=== PATIENT | female | born 1975 | race Caucasian/White ===

== ENCOUNTER 2016-06-26 13:01 | Emergency (ER) | payer OTHER ==
[~2016-06-26] VITALS: Ht 160 cm; Wt 68.0 kg
[~2016-06-26 13:01] MED LIST: BEN25 PO; CARB15SO5 MM; CETI10CA PO; DOXY100T20 PO; METR500T PO; NITR-58 PO; OMEP20CA9 PO; PHEN-538 PO
[2016-06-26 13:04] VITALS: Ht 160 cm; Wt 68.0 kg
[2016-06-26 14:58] LABS: URINE BLOOD (Dip) POC Negative (NEGATIVE)
[2016-06-26] MEDS ORDERED: CETI10CA PO (15:20)
[2016-06-26 15:27] VITALS: BP 116/68; PULSE 89; RESP 18; TEMP 98.1
--- NOTE | 2016-06-26 15:36 | ERD ---
ER Documentation Chief Complaint Date/Time DATE: 06/26/16 TIME: 15:31 Chief Complaint used root touch up chemical states feels abdomen and throat burning HPI Patient is a 41-year-old female who presents to the ED with itchiness to her scalp, shortness of breath after using a "root touch up." She states that she has multiple allergies to different chemicals and states that after using this product she developed her symptoms. She denies difficulty swallowing, breathing , talking. She denies lip or tongue swelling. She denies blurry vision, dizziness, headache. She denies abdominal pain, nausea, vomiting or diarrhea. Patient is very concerned about her symptoms and is worried that she "was poisoned." No other complaints. She has been drinking lots of fluid and states that she has been urinating a lot since 3 hours ago. ROS All systems reviewed and are negative except as per history of present illness. Medications Home Meds Active Scripts Cetirizine Hcl* (Zyrtec*) 10 Mg Capsule, 10 MG PO DAILY, #30 TAB.CHEW Prov:PAUL NAVARRO PA-C 06/26/16 Omeprazole* (Prilosec*) 20 Mg Capsule.dr, 20 MG PO BID, #30 CAP Prov:JAIRO RAMIRES PA-C 05/09/15 Carbamide Peroxide (Gly-Oxide) 60 Ml Solution, 60 ML MM BID, #1 Prov:JAIRO RAMIRES PA-C 05/09/15 Cetirizine Hcl* (Zyrtec*) 10 Mg Capsule, 10 MG PO DAILY, #14 TAB.CHEW Prov:EYAD CARTER MD 12/08/14 Phenazopyridine Hcl* (Pyridium*) 200 Mg Tab, 200 MG PO TID Y for DYSURIA, #6 TAB Prov:HEAVEN BEST NP 12/08/14 Nitrofurantoin Monohyd Macrocr* (Macrobid*) 100 Mg Capsr, 100 MG PO BID for 7 Days, CAP Prov:HEAVEN BEST NP 12/08/14 Diphenhydramine Hcl* (Benadryl*) 25 Mg Cap, 25 MG PO Q6 Y for IT, #30 CAP Prov:HEAVEN BEST NP 12/08/14 Doxycycline Hyclate* (Doxycycline Hyclate*) 100 Mg Tablet.dr, 100 MG PO BID for 14 Days, TAB Prov:ELISSA BOOTH MD 12/05/14 Metronidazole* (Flagyl*) 500 Mg Tablet, 500 MG PO BID WITH MEALS for 14 Days, TAB Prov:ELISSA BOOTH MD 12/05/14 Allergies Allergies: Coded Allergies: Penicillins (Verified Allergy, Intermediate, 06/26/16) PMhx/Soc Medical and Surgical Hx: pt denies Surgical Hx History of Surgery: No Anesthesia Reaction: No Hx Neurological Disorder: No Hx Respiratory Disorders: No Hx Cardiac Disorders: No Hx Psychiatric Problems: Yes (anxiety) Hx Miscellaneous Medical Probl: No Hx Alcohol Use: No Hx Substance Use: No Hx Tobacco Use: No Smoking Status: Never smoker FmHx Family History: No coronary disease, No diabetes, No other Physical Exam Vitals Vital Signs Date Time Temp Pulse Resp B/P Pulse Ox O2 Delivery O2 Flow Rate FiO2 06/26/16 15:27 98.1 89 18 116/68 100 Room Air 06/26/16 13:04 98.4 115 18 109/67 100 Physical Exam GENERAL: Well-developed, well-nourished female. Appears in no acute distress. HEAD: Normocephalic, atraumatic. EYES: Pupils are equally reactive bilaterally. EOMs grossly intact. No conjunctival erythema. ENT: Moist mucous membranes. No uvula deviation. No kissing tonsils. No exudates. No tongue or lip swelling. NECK: Supple. No lymphadenopathy or thyromegaly. No meningismus. negative kernig. negative brudinski. LUNG: Clear to auscultation bilaterally. No rhonchi, wheezing, rales or coarse breath sounds. HEART: Regular rate and rhythm. No murmurs, rubs or gallops. ABDOMEN: No scars, ecchymosis or rashes noted. Soft, nontender, and nondistended. Positive bowel sounds in all four quadrants. No rebound tenderness , no guarding. (-) McBurneys point tenderness. No CVA tenderness. BACK: No midline tenderness. Extremities: Equal pulses bilaterally. No peripheral clubbing, cyanosis or edema. No unilateral leg swelling. NEUROLOGIC: Alert and oriented. Moving all four extremities. 5/5 strength in all extremities. Normal speech. Steady gait. Cranial nerves II through XII intact. SKIN: Normal color. Warm and dry. No rashes or lesions. Capillary refill < 2 seconds Results 24 hrs Laboratory Tests Test 06/26/16 14:57 Bedside Urine pH (LAB) 6.0 Bedside Urine Protein (LAB) Negative Bedside Urine Glucose (UA) Negative Bedside Urine Ketones (LAB) Negative Bedside Urine Blood Negative Bedside Urine Nitrite (LAB) Negative Bedside Urine Leukocyte Esterase (L Negative Procedures/MDM ER COURSE: I kept the patient and/or family informed of laboratory and diagnostic imaging results throughout the emergency room course. LABORATORY STUDIES Urine dip shows no nitrites, hematuria or leukocytes. MEDICAL DECISION MAKING: This is a 41-year-old female who presents with nervousness and scalp discomfort after using hair dye. Vital signs were reviewed. Patient is afebrile. Patient is not hypoxic. Patient is not toxic or ill-appearing. Her initial tachycardia is likely related to stress reaction and being nervous. Patient likely has allergic reaction to chemical in the hair dye. I have low suspicion for angioedema, sepsis, anaphylactic. Patient does not have tongue or lip swelling and is speaking in full sentences without shortness of breath. Low suspicion for necrotizing fasciitis, SJS, toxic epidermal necrolysis, Kawasaki, erythema multiforme, gangrene, scarlet fever, meningococcemia, sepsis, anaphylaxis, sepsis, deep space infection, or foreign body. Low suspicion for ACS, PE, AAA, dissection, DVT DISCHARGE: At this time, patient is stable for discharge and outpatient management with no new complaints during the ER course. Patient was sent home with [facility]. Patient will be discharged home with instructions to recheck for new or worsening symptoms such as fever, nausea, weakness, LOC and to follow up with primary care in the next 1-2 days. Patient was advised to return to the ER for any new or worsening symptoms. Plan was discussed and patient and/or family understands and agrees. Home instructions were given. Departure Diagnosis: Primary Impression: Allergic reaction Encounter type: initial encounter Qualified Code: T78.40XA - Allergic reaction, initial encounter Condition: Stable Patient Instructions: Allergic Reaction, Drug Additional Instructions: Call your primary care doctor TOMORROW for an appointment during the next 1-2 days.See the doctor sooner or return here if your condition worsens before your appointment time. PAUL NAVARRO PA-C Jun 26, 2016 15:36
== END 2016-06-26 15:28 | disposition home or self-care (01) ==
LOC: FTE 13:01
DX: T78.49XA Other allergy, initial encounter (principal)
CPT/HCPCS: 81003; Z7502; 99283

== ENCOUNTER 2017-08-02 10:32 | Emergency (ER) | END 2017-08-02 10:55 | disposition home or self-care (01) ==

== ENCOUNTER 2017-09-15 03:58 | Emergency (ER) | END 2017-09-15 06:40 | disposition home or self-care (01) ==

== ENCOUNTER 2018-02-14 22:41 | Emergency (ER) | END 2018-02-14 23:21 | disposition home or self-care (01) ==

== ENCOUNTER 2018-05-28 06:15 | Emergency (ER) | payer OTHER ==
[~2018-05-28] VITALS: Ht 157.5 cm; Wt 68.0 kg
[~2018-05-28 06:15] MED LIST changes: +FAMO-96 PO; +FLUT9.9S NASAL; +LORA10CA PO; +LORA10CA9 PO; +MED4DP PO; +ONDA4TAB8 PO; +RANI150T35 PO
[2018-05-28 06:20] VITALS: Ht 157.5 cm; Wt 68.0 kg
[2018-05-28] MEDS ORDERED: LORA-441 PO (07:14)
--- NOTE | 2018-05-28 07:14 | ERD ---
ER Documentation Chief Complaint Chief Complaint anxiety HPI 42-year-old female with history of anxiety, presents to the emergency department complaining of sudden onset of dizziness, chest pain, palpitations associated with sore throat. The patient states that she has been under a lot of stress and persistent worrying about health and family. She has had similar episodes in the past but less intense. She is not taking any medication at this time. History provided by patient. ROS All systems reviewed and are negative except as per history of present illness. Medications Home Meds Active Scripts Lorazepam* (Ativan*) 0.5 Mg Tablet, 0.5 MG PO Q8H PRN for ANXIETY, #10 TAB Prov:JENNA CHE MD 05/28/18 Loratadine (Loratadine) 10 Mg Capsule, 10 MG PO DAILY, #30 CAP Prov:PASILABANTAVO 02/14/18 Ondansetron Hcl* (Zofran*) 4 Mg Tablet, 4 MG PO Q8H PRN for NAUSEA AND/OR VOMITING, #30 TAB Prov:TAVO DIAS 02/14/18 Famotidine* (Pepcid*) 20 Mg Tablet, 20 MG PO BID for 45 Days, TAB Prov:LARISSATREYSHANIQUA 02/14/18 Ranitidine Hcl* (Zantac*) 150 Mg Tablet, 150 MG PO BID, #60 TAB Prov:ANNI BARAJAS DO 09/15/17 Loratadine* (Claritin*) 10 Mg Capsule, 10 MG PO DAILY for 5 Days, CAP Prov:LATOSHA BOTELLO PA-C 08/02/17 Fluticasone Propionate (Flonase Allergy Relief) 9.9 Ml [place].susp, 1 SPRAY NASAL BID, #1 BOTTLE TO EACH NOSTRIL Prov:LATOSHA BOTELLO PA-C 08/02/17 Methylprednisolone* (Medrol* DOSE PACK) 4 Mg/Dose-Pack Tab.ds.pk, 4 MG PO . DIRECTED for 5 Days, PACKET Prov:LATOSHA BOTELLO PA-C 08/02/17 Diphenhydramine Hcl* (Benadryl*) 25 Mg Cap, 25 MG PO Q6, #30 CAP Prov:LATOSHA BOTELLO PA-C 08/02/17 Cetirizine Hcl* (Zyrtec*) 10 Mg Capsule, 10 MG PO DAILY, #30 TAB.CHEW Prov:PAUL NAVARROC 06/26/16 Omeprazole* (Prilosec*) 20 Mg Capsule., 20 MG PO BID, #30 CAP Prov:JAIRO RAMIRES PA-C 05/09/15 Carbamide Peroxide (Gly-Oxide) 60 Ml Solution, 60 ML MM BID, #1 Prov:JAIRO RAMIRES PA-C 05/09/15 Cetirizine Hcl* (Zyrtec*) 10 Mg Capsule, 10 MG PO DAILY, #14 TAB.CHEW Prov:EYAD CARTER MD 12/08/14 Phenazopyridine Hcl* (Pyridium*) 200 Mg Tab, 200 MG PO TID PRN for DYSURIA, #6 TAB Prov:HEAVEN BEST NP 12/08/14 Nitrofurantoin Monohyd Macrocr* (Macrobid*) 100 Mg Capsr, 100 MG PO BID for 7 Days, CAP Prov:HEAVEN BEST NP 12/08/14 Diphenhydramine Hcl* (Benadryl*) 25 Mg Cap, 25 MG PO Q6 PRN for IT, #30 CAP Prov:HEAVEN BEST NP 12/08/14 Doxycycline Hyclate* (Doxycycline Hyclate*) 100 Mg Tablet., 100 MG PO BID for 14 Days, TAB Prov:ELISSA BOOTH MD 12/05/14 Metronidazole* (Flagyl*) 500 Mg Tablet, 500 MG PO BID WITH MEALS for 14 Days, TAB Prov:ELISSA BOOTH MD 12/05/14 Allergies Allergies: Coded Allergies: Penicillins (Verified Allergy, Intermediate, 05/28/18) PMhx/Soc History of Surgery: No Anesthesia Reaction: No Hx Neurological Disorder: No Hx Respiratory Disorders: No Hx Cardiac Disorders: No Hx Psychiatric Problems: Yes (anxiety) Hx Miscellaneous Medical Probl: Yes (HTN) Hx Alcohol Use: No Hx Substance Use: No Hx Tobacco Use: No FmHx Family History: No diabetes, No coronary disease Physical Exam Vitals Vital Signs Date Temp Pulse Resp B/P (MAP) Pulse Ox O2 O2 Flow FiO2 Time Delivery Rate 05/28/18 98.2 87 16 149/87 100 Room Air 07:26 (107) 05/28/18 98.1 93 16 157/92 100 06:20 (113) Physical Exam Const: No acute distress Head: Atraumatic Eyes: Normal Conjunctiva ENT: Normal External Ears, Nose and Mouth. Neck: Full range of motion. No meningismus. Resp: Clear to auscultation bilaterally Cardio: Regular rate and rhythm, no murmurs Abd: Soft, non tender, non distended. Normal bowel sounds Skin: No petechiae or rashes Back: No midline or flank tenderness Ext: No cyanosis, or edema Neur: Awake and alert Psych: Normal Mood and Affect Procedures/MDM Vital signs stable, Physical exam unremarkable, neurovascular exam intact. Differential diagnosis include but not limited to: Depression, anxiety, migraine, thyroid disease, electrolyte imbalance. Low suspicion for acute coronary event, aortic dissection, CVA. Physical examination and clinical presentation consistent most likely with anxiety. During the ED course the patient remained stable, no new complaints. Results and clinical impression discussed with patient who agrees with management. The patient is stable to be treated outpatient and will be discharged home with a Rx for lorazepam, some side effects of prescribed medications (headache, rash, nausea, vomiting, diarrhea, drowsiness, hab ituation, bleeding, hypertension, interactions with other medications) were reviewed. The patient was instructed to follow up with the primary care provider in the next 48h. If symptoms persist, worsen or new symptoms develop, then patient should return to the ED immediately. Instructions explained and given directly by me to the patient with acknowledgment and demonstrated understanding. Disclaimer: Inadvertent spelling and grammatical errors are likely due to EHR/dictation software use and do not reflect on the overall quality of patient care. Also, please note that the electronic time recorded on this note does not necessarily reflect the actual time of the patient encounter. Departure Diagnosis: Primary Impression: Anxiety Condition: Stable Additional Instructions: Thank you very much for allowing us to participate in your care. Your health and safety is our top priority at [facility]. Call your primary care doctor TOMORROW for an appointment during the next 2-4 days and bring all the information and medications prescribed. Have prescriptions filled and follow precisely the directions on the label. If the symptoms get worse and your provider is unavailable, return to the Emergency Department immediately. JENNA CHE MD May 28, 2018 07:14
[2018-05-28 07:26] VITALS: BP 149/87; PULSE 87; RESP 16
== END 2018-05-28 07:20 | disposition home or self-care (01) ==
LOC: FTE 06:15
DX: F41.9 Anxiety disorder, unspecified (principal); I10 Essential (primary) hypertension
CPT/HCPCS: 99283

== ENCOUNTER 2018-06-02 11:32 | Emergency (ER) | payer OTHER ==
[~2018-06-02] VITALS: Ht 154.9 cm; Wt 69.6 kg
[~2018-06-02 11:32] MED LIST changes: +LORA-441 PO
[2018-06-02 11:38] VITALS: Ht 154.9 cm; Wt 69.6 kg
--- NOTE | 2018-06-02 12:16 | ERD ---
ER Documentation Chief Complaint Chief Complaint ABD PAIN AFTER TAKING BENADRYL TODAY , APPEARS ANXIOUS HPI The patient is a 43-year-old female, presenting to the ER because of transient abdominal pain after taking Benadryl at 9 AM, denies any abdominal pain now, she feels anxious and wants to go home. She denies suicidal/homicidal ideation, auditory/visual hallucination, dyspnea, chest pain, vomiting 20 sigmoid diarrhea. She has a lot of stress in her life, denies smoking or drinking Past Medical History: Anxiety, hypertension Past surgical history: None ROS All systems reviewed and are negative except as per history of present illness. Medications Home Meds Active Scripts Lorazepam* (Ativan*) 0.5 Mg Tablet, 0.5 MG PO Q8H PRN for ANXIETY, #10 TAB Prov:JENNA CHE MD 05/28/18 Loratadine (Loratadine) 10 Mg Capsule, 10 MG PO DAILY, #30 CAP Prov:PASILABANTAVO F 02/14/18 Ondansetron Hcl* (Zofran*) 4 Mg Tablet, 4 MG PO Q8H PRN for NAUSEA AND/OR VOMITING, #30 TAB Prov:PASILABANTAVO 02/14/18 Famotidine* (Pepcid*) 20 Mg Tablet, 20 MG PO BID for 45 Days, TAB Prov:PASTAVO RODRÍGUEZ F 02/14/18 Ranitidine Hcl* (Zantac*) 150 Mg Tablet, 150 MG PO BID, #60 TAB Prov:ANNI BARAJAS DO 09/15/17 Loratadine* (Claritin*) 10 Mg Capsule, 10 MG PO DAILY for 5 Days, CAP Prov:LATOSHA BOTELLO PA-C 08/02/17 Fluticasone Propionate (Flonase Allergy Relief) 9.9 Ml [place].susp, 1 SPRAY NASAL BID, #1 BOTTLE TO EACH NOSTRIL Prov:LATOSHA BOTELLO PA-C 08/02/17 Methylprednisolone* (Medrol* DOSE PACK) 4 Mg/Dose-Pack Tab.ds.pk, 4 MG PO . DIRECTED for 5 Days, PACKET Prov:LATOSHA BOTELLO PA-C 08/02/17 Diphenhydramine Hcl* (Benadryl*) 25 Mg Cap, 25 MG PO Q6, #30 CAP Prov:LATOSHA BOTELLOC 08/02/17 Cetirizine Hcl* (Zyrtec*) 10 Mg Capsule, 10 MG PO DAILY, #30 TAB.CHEW Prov:PAUL NAVARROC 06/26/16 Omeprazole* (Prilosec*) 20 Mg Capsule.dr, 20 MG PO BID, #30 CAP Prov:JAIRO RAMIRES PA-C 05/09/15 Carbamide Peroxide (Gly-Oxide) 60 Ml Solution, 60 ML MM BID, #1 Prov:JAIRO RAMIRESC 05/09/15 Cetirizine Hcl* (Zyrtec*) 10 Mg Capsule, 10 MG PO DAILY, #14 TAB.CHEW Prov:EYAD CARTER MD 12/08/14 Phenazopyridine Hcl* (Pyridium*) 200 Mg Tab, 200 MG PO TID PRN for DYSURIA, #6 TAB Prov:HEAVEN BEST NP 12/08/14 Nitrofurantoin Monohyd Macrocr* (Macrobid*) 100 Mg Capsr, 100 MG PO BID for 7 Days, CAP Prov:HEAVEN BEST [employer] 12/08/14 Diphenhydramine Hcl* (Benadryl*) 25 Mg Cap, 25 MG PO Q6 PRN for IT, #30 CAP Prov:HEAVEN BEST [employer] 12/08/14 Doxycycline Hyclate* (Doxycycline Hyclate*) 100 Mg Tablet., 100 MG PO BID for 14 Days, TAB Prov:ELISSA BOOTH MD 12/05/14 Metronidazole* (Flagyl*) 500 Mg Tablet, 500 MG PO BID WITH MEALS for 14 Days, TAB Prov:ELISSA BOOTH MD 12/05/14 Allergies Allergies: Coded Allergies: Penicillins (Verified Allergy, Intermediate, 05/28/18) PMhx/Soc History of Surgery: No Anesthesia Reaction: No Hx Neurological Disorder: No Hx Respiratory Disorders: No Hx Cardiac Disorders: No Hx Psychiatric Problems: Yes (anxiety) Hx Miscellaneous Medical Probl: Yes (HTN) Hx Alcohol Use: No Hx Substance Use: No Hx Tobacco Use: No Physical Exam Vitals Vital Signs Date Temp Pulse Resp B/P (MAP) Pulse Ox O2 O2 Flow FiO2 Time Delivery Rate 06/02/18 98 18 152/78 98 Room Air 12:40 (102) 06/02/18 99.9 119 18 161/103 97 11:38 (122) Physical Exam Const: No acute distress. Head: Atraumatic. Eyes: Normal Conjunctiva. ENT: Normal External Ears, Nose and Mouth. Neck: Full range of motion. No meningismus. Resp: Clear to auscultation bilaterally. Cardio: Regular rate and rhythm. Abd: Soft, non distended, normal bowel sounds, non tender. Skin: No petechiae or rashes. Back: No midline or flank tenderness. Ext: No cyanosis, or edema. Neur: Awake and alert. No focal deficit Psych: Anxious Procedures/MDM MEDICAL MAKING DECISION: The patient is a 43-year-old female, presenting with acute anxiety, is stable for outpatient follow-up The differential diagnoses considered include but are not limited to anxiety attack, panic attack, gastritis, GERD Departure Diagnosis: Primary Impression: Anxiety attack Condition: Good Comments I discussed the findings with the patient. I advised the patient to follow-up with the primary physician in about 2-3 days, sooner if needed and return if any concern. Disclaimer: Inadvertent spelling and grammatical errors are likely due to EHR/dictation software use and do not reflect on the overall quality of patient care. Also, please note that the electronic time recorded on this note does not necessarily reflect the actual time of the patient encounter. BHARATH BYRNE MD Jun 02, 2018 12:16
[2018-06-02 12:40] VITALS: BP 152/78; PULSE 98; RESP 18
[2018-06-03] MEDS ORDERED: BEN50 PO (21:00)
== END 2018-06-02 12:48 | disposition home or self-care (01) ==
LOC: E/R 11:32
DX: F41.9 Anxiety disorder, unspecified (principal); I10 Essential (primary) hypertension
CPT/HCPCS: 99282

== ENCOUNTER 2018-06-03 16:46 | Emergency (ER) | payer OTHER ==
[~2018-06-03] VITALS: Ht 162.6 cm; Wt 70.0 kg
[2018-06-03 16:53] VITALS: BP 164/59; PULSE 98; RESP 16; Ht 162.6 cm; Wt 70.0 kg
[2018-06-03] MEDS ORDERED: FAMOTIDINE 20 MG TAB PO ONE (21:00)
[2018-06-03] MEDS ORDERED: BEN50 PO (21:00)
[2018-06-03] MEDS ORDERED: LORAZEPAM 0.5 MG TAB PO ONE (21:00)
[2018-06-03] MEDS ORDERED: DIPHENHYDRAMINE 50 MG INJ IM ONE (21:00)
--- NOTE | 2018-06-03 21:27 | ERD ---
ER Documentation Chief Complaint Chief Complaint BIB [facility] FOR EVAL OF ST AND BURNING EYES. SEEN YESTERDAY FOR SAME HPI 43-year-old female presents with sore throat and complaint of burning eyes since yesterday. States that she ate cheese yesterday morning and thinks that that might of caused an allergic reaction. Admits to having a history of anxiety as well. Denies shortness of breath, wheezing, nausea, abdominal pain, vomiting, diarrhea. Denies past medical history. Denies allergies. Denies medications. Denies surgeries. Denies alcohol, tobacco, drug use. Up to date on vaccines. ROS All systems reviewed and are negative except as per history of present illness. Medications Home Meds Active Scripts Diphenhydramine Hcl* (Benadryl*) 50 Mg Cap, 50 MG PO Q6H PRN for ITCHING/RASH, #30 CAP Prov:ESTEBAN FORREST 06/03/18 Lorazepam* (Ativan*) 0.5 Mg Tablet, 0.5 MG PO Q8H PRN for ANXIETY, #10 TAB Prov:JENNA CHE MD 05/28/18 Loratadine (Loratadine) 10 Mg Capsule, 10 MG PO DAILY, #30 CAP Prov:PASILATAVO HALL F 02/14/18 Ondansetron Hcl* (Zofran*) 4 Mg Tablet, 4 MG PO Q8H PRN for NAUSEA AND/OR VOMITING, #30 TAB Prov:PASTAVO RODRÍGUEZ 02/14/18 Famotidine* (Pepcid*) 20 Mg Tablet, 20 MG PO BID for 45 Days, TAB Prov:TAVO DIAS 02/14/18 Ranitidine Hcl* (Zantac*) 150 Mg Tablet, 150 MG PO BID, #60 TAB Prov:ANNI BARAJAS DO 09/15/17 Loratadine* (Claritin*) 10 Mg Capsule, 10 MG PO DAILY for 5 Days, CAP Prov:LATOSHA BOTELLO PA-C 08/02/17 Fluticasone Propionate (Flonase Allergy Relief) 9.9 Ml [place].susp, 1 SPRAY NASAL BID, #1 BOTTLE TO EACH NOSTRIL Prov:LATOSHA BOTELLO PA-C 08/02/17 Methylprednisolone* (Medrol* DOSE PACK) 4 Mg/Dose-Pack Tab.ds.pk, 4 MG PO . DIRECTED for 5 Days, PACKET Prov:LATOSHA BOTELLO PA-C 08/02/17 Diphenhydramine Hcl* (Benadryl*) 25 Mg Cap, 25 MG PO Q6, #30 CAP Prov:LATOSHA BOTELLOC 08/02/17 Cetirizine Hcl* (Zyrtec*) 10 Mg Capsule, 10 MG PO DAILY, #30 TAB.CHEW Prov:PAUL NAVARROC 06/26/16 Omeprazole* (Prilosec*) 20 Mg Capsule.dr, 20 MG PO BID, #30 CAP Prov:JAIRO RAMIRES PA-C 05/09/15 Carbamide Peroxide (Gly-Oxide) 60 Ml Solution, 60 ML MM BID, #1 Prov:JAIRO RAMIRES PA-C 05/09/15 Cetirizine Hcl* (Zyrtec*) 10 Mg Capsule, 10 MG PO DAILY, #14 TAB.CHEW Prov:EYAD CARTER MD 12/08/14 Phenazopyridine Hcl* (Pyridium*) 200 Mg Tab, 200 MG PO TID PRN for DYSURIA, #6 TAB Prov:HEAVEN BEST NP 12/08/14 Nitrofurantoin Monohyd Macrocr* (Macrobid*) 100 Mg Capsr, 100 MG PO BID for 7 Days, CAP Prov:HEAVEN BEST NP 12/08/14 Diphenhydramine Hcl* (Benadryl*) 25 Mg Cap, 25 MG PO Q6 PRN for IT, #30 CAP Prov:HEAVEN BEST NP 12/08/14 Doxycycline Hyclate* (Doxycycline Hyclate*) 100 Mg Tablet., 100 MG PO BID for 14 Days, TAB Prov:ELISSA BOOTH MD 12/05/14 Metronidazole* (Flagyl*) 500 Mg Tablet, 500 MG PO BID WITH MEALS for 14 Days, TAB Prov:ELISSA BOOTH MD 12/05/14 Allergies Allergies: Coded Allergies: Penicillins (Verified Allergy, Intermediate, 05/28/18) aspirin (Verified Allergy, Unknown, 06/03/18) PMhx/Soc History of Surgery: No Anesthesia Reaction: No Hx Neurological Disorder: No Hx Respiratory Disorders: No Hx Cardiac Disorders: No Hx Psychiatric Problems: Yes (anxiety) Hx Miscellaneous Medical Probl: Yes (HTN) Hx Alcohol Use: No Hx Substance Use: No Hx Tobacco Use: No Smoking Status: Never smoker FmHx Family History: No diabetes, No coronary disease, No other Physical Exam Vitals Vital Signs Date Temp Pulse Resp B/P (MAP) Pulse Ox O2 O2 Flow FiO2 Time Delivery Rate 06/03/18 97.3 98 16 164/59 99 16:53 (94) Physical Exam Const: No acute distress Head: Atraumatic Eyes: Normal Conjunctiva ENT: Normal External Ears, Nose and Mouth. There is no angioedema or tongue swelling. Airways patent and clear. Neck: Full range of motion. No meningismus. Resp: Clear to auscultation bilaterally Cardio: Regular rate and rhythm, no murmurs Abd: Soft, non tender, non distended. Normal bowel sounds Skin: No petechiae or rashes Back: No midline or flank tenderness Ext: No cyanosis, or edema Neur: Awake and alert Psych: Normal Mood and Affect Results 24 hrs Current Medications Medications Dose Sig/Donn Start Time Status Last (Trade) Ordered Route PRN Stop Time Admin Dose Reason Admin 50 mg ONCE ONCE 06/03/18 DC 06/03/18 Diphenhydrami IM 21:00 21:04 ne HCl 06/03/18 21:01 (Benadryl) Famotidine 20 mg ONCE ONCE 06/03/18 DC 06/03/18 (Pepcid) PO 21:00 21:04 06/03/18 21:01 Lorazepam 0.5 mg ONCE ONCE 06/03/18 DC 06/03/18 (Ativan) PO 21:00 21:04 06/03/18 21:01 Procedures/MDM 43-year-old female presents with sore throat and complaint of burning eyes since yesterday. States that she ate cheese yesterday morning and thinks that that might of caused an allergic reaction. Admits to having a history of anxiety as well. Denies shortness of breath, wheezing, nausea, abdominal pain, vomiting, diarrhea. Denies past medical history. Denies allergies. Denies medications. Denies surgeries. Denies alcohol, tobacco, drug use. Up to date on vaccines. I will suspicion for respiratory distress, anaphylaxis, angioedema, or other emergent condition. Patient most likely is just having anxiety. Patient given Benadryl in the ER as well as Pepcid and Ativan. Patient discharged with Rx for Benadryl. Patient discharged with strict ER precautions. Patient advised to follow up with PMD. All questions answered at discharge. Departure Diagnosis: Primary Impression: Allergic reaction Additional Impression: Anxiety Condition: Stable Patient Instructions: First Aid: Allergic Reactions, Anxiety Reaction Referrals: [facility] YOU HAVE RECEIVED A MEDICAL SCREENING EXAM AND THE RESULTS INDICATE THAT YOU DO NOT HAVE A CONDITION THAT REQUIRES URGENT TREATMENT IN THE EMERGENCY DEPARTMENT. FURTHER EVALUATION AND TREATMENT OF YOUR CONDITION CAN WAIT UNTIL YOU ARE SEEN IN YOUR DOCTORS OFFICE WITHIN THE NEXT 1-2 DAYS. IT IS YOUR RESPONSIBILITY TO MAKE AN APPOINTMENT FOR FOLOW-UP CARE. IF YOU HAVE A PRIMARY DOCTOR --you should call your primary doctor and schedule an appointment IF YOU DO NOT HAVE A PRIMARY DOCTOR YOU CAN CALL OUR PHYSICIAN REFERRAL HOTLINE AT IF YOU CAN NOT AFFORD TO SEE A PHYSICIAN YOU CAN CHOSE FROM THE FOLLOWING [facility] CLINICS [facility] [address] [facility]. [facility] [address] [facility] [address] [facility] [facility] [address] [facility] [address] [facility]. [facility]. [address] Additional Instructions: FOLLOW UP WITH YOUR PRIMARY CARE PHYSICIAN TOMORROW.Return to this facility if you are not improving as expected. ESTEBAN FORREST Jun 03, 2018 21:27
== END 2018-06-03 21:17 | disposition home or self-care (01) ==
LOC: FTE 16:46
DX: T78.1XXA Other adverse food reactions, not elsewhere classified, initial encounter (principal); I10 Essential (primary) hypertension; F41.9 Anxiety disorder, unspecified
CPT/HCPCS: 96372; J1200; Z7502; Z7610

== ENCOUNTER 2018-06-07 13:36 | Emergency (ER) | payer OTHER ==
[~2018-06-07] VITALS: Ht 152.4 cm; Wt 66.3 kg
[~2018-06-07 13:36] MED LIST changes: +BEN50 PO
[2018-06-07 13:52] VITALS: BP 141/97; PULSE 101; RESP 16; Ht 152.4 cm; Wt 66.3 kg
[2018-06-07] MEDS ORDERED: LORAZEPAM 1 MG TAB PO ONE (14:00)
--- NOTE | 2018-06-07 15:07 | ERD ---
ER Documentation Chief Complaint Chief Complaint anxiety HPI 43-year-old female who presents with anxiety. The patient describes anxiety and palpitations over the past 12-24 hours after taking herbal medications. She states that she usually takes these medications. She states however she has been more anxious because over the last several months she has had a number of mild allergic reaction. The patient does describe palpitations but denies any chest pain or pressure, no pleuritic pain. She denies any suicidal or homicidal ideation. She states a history of hypokalemia would like her chemistry tested. ROS All systems reviewed and are negative except as per history of present illness. Medications Home Meds Active Scripts Diphenhydramine Hcl* (Benadryl*) 50 Mg Cap, 50 MG PO Q6H PRN for ITCHING/RASH, #30 CAP Prov:ESTEBAN FORREST 06/03/18 Lorazepam* (Ativan*) 0.5 Mg Tablet, 0.5 MG PO Q8H PRN for ANXIETY, #10 TAB Prov:JENNA CHE MD 05/28/18 Loratadine (Loratadine) 10 Mg Capsule, 10 MG PO DAILY, #30 CAP Prov:TAVO DIAS 02/14/18 Ondansetron Hcl* (Zofran*) 4 Mg Tablet, 4 MG PO Q8H PRN for NAUSEA AND/OR VOMITING, #30 TAB Prov:PASTAVO RODRÍGUEZ F 02/14/18 Famotidine* (Pepcid*) 20 Mg Tablet, 20 MG PO BID for 45 Days, TAB Prov:TAVO DIAS 02/14/18 Ranitidine Hcl* (Zantac*) 150 Mg Tablet, 150 MG PO BID, #60 TAB Prov:ANNI BARAJAS DO 09/15/17 Loratadine* (Claritin*) 10 Mg Capsule, 10 MG PO DAILY for 5 Days, CAP Prov:LATOSHA BOTELLO PA-C 08/02/17 Fluticasone Propionate (Flonase Allergy Relief) 9.9 Ml [place].susp, 1 SPRAY NASAL BID, #1 BOTTLE TO EACH NOSTRIL Prov:LATOSHA BOTELLO PA-C 08/02/17 Methylprednisolone* (Medrol* DOSE PACK) 4 Mg/Dose-Pack Tab.ds.pk, 4 MG PO . DIRECTED for 5 Days, PACKET Prov:LATOSHA BOTELLO PA-C 08/02/17 Diphenhydramine Hcl* (Benadryl*) 25 Mg Cap, 25 MG PO Q6, #30 CAP Prov:LATOSHA BOTELLO PA-C 08/02/17 Cetirizine Hcl* (Zyrtec*) 10 Mg Capsule, 10 MG PO DAILY, #30 TAB.CHEW Prov:PAUL NAVARROC 06/26/16 Omeprazole* (Prilosec*) 20 Mg Capsule.dr, 20 MG PO BID, #30 CAP Prov:JAIRO RAMIRES PA-C 05/09/15 Carbamide Peroxide (Gly-Oxide) 60 Ml Solution, 60 ML MM BID, #1 Prov:JAIRO RAMIRES PA-C 05/09/15 Cetirizine Hcl* (Zyrtec*) 10 Mg Capsule, 10 MG PO DAILY, #14 TAB.CHEW Prov:EYAD CARTER MD 12/08/14 Phenazopyridine Hcl* (Pyridium*) 200 Mg Tab, 200 MG PO TID PRN for DYSURIA, #6 TAB Prov:HEAVEN BEST NP 12/08/14 Nitrofurantoin Monohyd Macrocr* (Macrobid*) 100 Mg Capsr, 100 MG PO BID for 7 Days, CAP Prov:HEAVEN BEST NP 12/08/14 Diphenhydramine Hcl* (Benadryl*) 25 Mg Cap, 25 MG PO Q6 PRN for IT, #30 CAP Prov:HEAVEN BEST NP 12/08/14 Doxycycline Hyclate* (Doxycycline Hyclate*) 100 Mg Tablet., 100 MG PO BID for 14 Days, TAB Prov:ELISSA BOOTH MD 12/05/14 Metronidazole* (Flagyl*) 500 Mg Tablet, 500 MG PO BID WITH MEALS for 14 Days, TAB Prov:ELISSA BOOTH MD 12/05/14 Allergies Allergies: Coded Allergies: Penicillins (Verified Allergy, Intermediate, 05/28/18) aspirin (Verified Allergy, Unknown, 06/03/18) PMhx/Soc History of Surgery: No Anesthesia Reaction: No Hx Respiratory Disorders: No Hx Psychiatric Problems: Yes (anxiety) Hx Alcohol Use: No Hx Substance Use: No Hx Tobacco Use: No Smoking Status: Never smoker FmHx Family History: No diabetes Physical Exam Vitals Vital Signs Date Temp Pulse Resp B/P (MAP) Pulse Ox O2 O2 Flow FiO2 Time Delivery Rate 06/07/18 101 16 141/97 100 Room Air 13:52 (112) 06/07/18 98.2 101 16 141/97 100 13:52 (112) Physical Exam General: Well developed, well nourished, no acute distress Head: Normocephalic, atraumatic. Eyes: Pupils equally reactive, EOM intact ENT: Moist mucous membranes Neck: Supple, no lymphadenopathy Respiratory: Lungs clear bilaterally, no distress Cardiovascular: RRR, no murmurs, rubs, or gallops Abdominal: Soft, non-tender, non-distended, no peritoneal signs : Deferred MSK: No edema, no unilateral swelling, 5/5 strength Neurologic: Alert and oriented, moving all extremities, normal speech, no focal weakness, no cerebellar signs Skin: No rash Psych: Extremely anxious, no SI or HI Result Diagram: 06/07/18 1406 Results 24 hrs Laboratory Tests Test 06/07/18 14:06 Sodium Level 141 mmol/L Potassium Level 3.8 mmol/L Chloride Level 104 mmol/L Carbon Dioxide Level 24 mmol/L Anion Gap 13 Blood Urea Nitrogen 18 mg/dl Creatinine 0.98 mg/dl Est Glomerular Filtrat Rate mL/min > 60 mL/min Glucose Level 102 mg/dl Calcium Level 9.7 mg/dl Current Medications Medications Dose Sig/Donn Start Time Status Last (Trade) Ordered Route PRN Stop Time Admin Dose Reason Admin Lorazepam 1 mg ONCE ONCE 06/07/18 DC 06/07/18 (Ativan) PO 14:00 14:10 06/07/18 14:01 Procedures/MDM EKG, MONITORS, & DIAGNOSTIC IMAGING: EKG: I reviewed and interpreted a 12-lead EKG. Rhythm: Normal sinus rhythm ST Changes: No contiguous ST segment elevations T waves: No contiguous T wave inversions Impression: No evidence of acute cardiac ischemia LAB INTERPRETATION: I reviewed the laboratory testing and it shows no evidence of acute process MEDICAL DECISION MAKING: The patient is extremely anxious and her presentation is very consistent with anxiety attack and palpitations secondary to that. Patient exhibits no signs or symptoms concerning for ACS, pulmonary embolism or alternative diagnosis. The patient does describe a history of hypokalemia and would like a chemistry profile sent. I believe this is reasonable. ER COURSE: * The patient was given Ativan with improved symptomatology. Laboratory testing and EKG are unremarkable. The patient can be safely discharged home with primary care follow-up. I do not believe outpatient benzo diazepam's will be appropriate at this time. She needs to follow-up with her primary care physician. CONSULTATION: None DISPOSITION PLAN: The patient does not have an identifiable emergent medical condition that warrants inpatient hospitalization at this time. The patient is deemed safe for discharge with outpatient follow-up. We discussed follow up with the patient's primary care doctor within 24 to 48 hours as needed. We also discussed return to the emergency room for worsening symptoms or worsening condition. Outpatient referral: None required Discharge Medications: None required Departure Diagnosis: Primary Impression: Anxiety reaction Additional Impression: Palpitations Condition: Stable Patient Instructions: Anxiety Reaction, Palpitations Referrals: [facility] YOU HAVE RECEIVED A MEDICAL SCREENING EXAM AND THE RESULTS INDICATE THAT YOU DO NOT HAVE A CONDITION THAT REQUIRES URGENT TREATMENT IN THE EMERGENCY DEPARTMENT. FURTHER EVALUATION AND TREATMENT OF YOUR CONDITION CAN WAIT UNTIL YOU ARE SEEN IN YOUR DOCTORS OFFICE WITHIN THE NEXT 1-2 DAYS. IT IS YOUR RESPONSIBILITY TO MAKE AN APPOINTMENT FOR FOLOW-UP CARE. IF YOU HAVE A PRIMARY DOCTOR --you should call your primary doctor and schedule an appointment IF YOU DO NOT HAVE A PRIMARY DOCTOR YOU CAN CALL OUR PHYSICIAN REFERRAL HOTLINE AT IF YOU CAN NOT AFFORD TO SEE A PHYSICIAN YOU CAN CHOSE FROM THE FOLLOWING [facility] [address] [facility] [address] [facility] [facility] [address] [facility] [address] [facility] [address] [facility]. [facility]. [address] [facility] [facility] YOU HAVE RECEIVED A MEDICAL SCREENING EXAM AND THE RESULTS INDICATE THAT YOU DO NOT HAVE A CONDITION THAT REQUIRES URGENT TREATMENT IN THE EMERGENCY DEPARTMENT. FURTHER EVALUATION AND TREATMENT OF YOUR CONDITION CAN WAIT UNTIL YOU ARE SEEN IN YOUR DOCTORS OFFICE WITHIN THE NEXT 1-2 DAYS. IT IS YOUR RESPONSIBILITY TO MAKE AN APPOINTMENT FOR FOLOW-UP CARE. IF YOU HAVE A PRIMARY DOCTOR --you should call your primary doctor and schedule and appointment IF YOU DO NOT HAVE A PRIMARY DOCTOR YOU CAN CALL OUR PHYSICIAN REFERRAL HOTLINE AT . IF YOU CAN NOT AFFORD TO SEE A PHYSICIAN YOU CAN CHOSE FROM THE FOLLOWING [facility] INSTITUTIONS: [facility] [address] [place] [address] [facility] [address] [place] [address] [facility] [address] [place] [address] Additional Instructions: Call your primary care doctor TOMORROW for an appointment during the next 1 WEEK.Tell the unit secretary that you were referred from this facility.See the doctor sooner or return here if your condition worsens before your appointment time. JENS CAMPOS MD Jun 07, 2018 15:07
== END 2018-06-07 15:13 | disposition home or self-care (01) ==
LOC: E/R 13:36
DX: F41.1 Generalized anxiety disorder (principal); R00.2 Palpitations
CPT/HCPCS: 80048; 93005; Z7502; Z7610

== ENCOUNTER 2018-06-09 02:32 | Emergency (ER) | payer OTHER ==
[~2018-06-09] VITALS: Ht 152.4 cm; Wt 67.3 kg
[2018-06-09 02:50] VITALS: Ht 152.4 cm; Wt 67.3 kg
--- NOTE | 2018-06-09 08:19 | ERD ---
ER Documentation Chief Complaint Chief Complaint ra 100, states having allergic rxn, c/o scratchy throat.no sob/lungs clear HPI 43-year-old female presents for neck swelling and upper chest redness. She states she has a foreign body sensation in her throat. Patient states that she has been coming to the hospital the whole week for diarrhea and an allergic reaction. She was given Benadryl which she states helped but she still feels a foreign body sensation in her throat. Patient was on multiple tangents. She is a poor historian. She states that she is more sensitive to smells. Patient does have a history of anxiety. ROS All systems reviewed and are negative except as per history of present illness. Medications Home Meds Active Scripts Diphenhydramine Hcl* (Benadryl*) 50 Mg Cap, 50 MG PO Q6H PRN for ITCHING/RASH, #30 CAP Prov:ESTEBAN FORREST 06/03/18 Lorazepam* (Ativan*) 0.5 Mg Tablet, 0.5 MG PO Q8H PRN for ANXIETY, #10 TAB Prov:JENNA CHE MD 05/28/18 Loratadine (Loratadine) 10 Mg Capsule, 10 MG PO DAILY, #30 CAP Prov:TAVO DIAS 02/14/18 Ondansetron Hcl* (Zofran*) 4 Mg Tablet, 4 MG PO Q8H PRN for NAUSEA AND/OR VOMITING, #30 TAB Prov:PASILATAVO HALL 02/14/18 Famotidine* (Pepcid*) 20 Mg Tablet, 20 MG PO BID for 45 Days, TAB Prov:TAVO DIAS 02/14/18 Ranitidine Hcl* (Zantac*) 150 Mg Tablet, 150 MG PO BID, #60 TAB Prov:ANNI BARAJAS DO 09/15/17 Loratadine* (Claritin*) 10 Mg Capsule, 10 MG PO DAILY for 5 Days, CAP Prov:LATOSHA BOTELLO PA-C 08/02/17 Fluticasone Propionate (Flonase Allergy Relief) 9.9 Ml [place].susp, 1 SPRAY NASAL BID, #1 BOTTLE TO EACH NOSTRIL Prov:LATOSHA BOTELLO PA-C 08/02/17 Methylprednisolone* (Medrol* DOSE PACK) 4 Mg/Dose-Pack Tab.ds.pk, 4 MG PO . DIRECTED for 5 Days, PACKET Prov:LATOSHA BOTELLO PA-C 08/02/17 Diphenhydramine Hcl* (Benadryl*) 25 Mg Cap, 25 MG PO Q6, #30 CAP Prov:LATOSHA BOTELLO PA-C 08/02/17 Cetirizine Hcl* (Zyrtec*) 10 Mg Capsule, 10 MG PO DAILY, #30 TAB.CHEW Prov:PAUL NAVARRO PA-C 06/26/16 Omeprazole* (Prilosec*) 20 Mg Capsule., 20 MG PO BID, #30 CAP Prov:JAIRO RAMIRES PA-C 05/09/15 Carbamide Peroxide (Gly-Oxide) 60 Ml Solution, 60 ML MM BID, #1 Prov:JAIRO RAMIRES PA-C 05/09/15 Cetirizine Hcl* (Zyrtec*) 10 Mg Capsule, 10 MG PO DAILY, #14 TAB.CHEW Prov:EYAD CARTER MD 12/08/14 Phenazopyridine Hcl* (Pyridium*) 200 Mg Tab, 200 MG PO TID PRN for DYSURIA, #6 TAB Prov:HEAVEN BEST NP 12/08/14 Nitrofurantoin Monohyd Macrocr* (Macrobid*) 100 Mg Capsr, 100 MG PO BID for 7 Days, CAP Prov:HEAVEN BEST NP 12/08/14 Diphenhydramine Hcl* (Benadryl*) 25 Mg Cap, 25 MG PO Q6 PRN for IT, #30 CAP Prov:HEAVEN BEST NP 12/08/14 Doxycycline Hyclate* (Doxycycline Hyclate*) 100 Mg Tablet., 100 MG PO BID for 14 Days, TAB Prov:ELISSA BOOTH MD 12/05/14 Metronidazole* (Flagyl*) 500 Mg Tablet, 500 MG PO BID WITH MEALS for 14 Days, TAB Prov:ELISSA BOOTH MD 12/05/14 Allergies Allergies: Coded Allergies: Penicillins (Verified Allergy, Intermediate, 06/09/18) aspirin (Verified Allergy, Unknown, 3/19/19) PMhx/Soc History of Surgery: No Anesthesia Reaction: No Hx Respiratory Disorders: No Hx Psychiatric Problems: Yes (anxiety) Hx Alcohol Use: Yes Hx Substance Use: No Hx Tobacco Use: No Smoking Status: Never smoker Physical Exam Vitals Vital Signs Date Temp Pulse Resp B/P (MAP) Pulse Ox O2 O2 Flow FiO2 Time Delivery Rate 06/09/18 97.5 95 18 159/92 99 02:50 (114) Physical Exam Const: No acute distress Head: Atraumatic Eyes: Normal Conjunctiva ENT: Normal External Ears, bilateral tympanic membrane intact without erythema or bulging noted, nose and Mouth examination normal, no tonsillar swelling or exudate noted Neck: Full range of motion. No meningismus. There is mild anterior neck swelling noted Resp: Clear to auscultation bilaterally, no wheezing, rales, rhonchi Cardio: Regular rate and rhythm, no murmurs Skin: No petechiae or rashes Ext: No cyanosis, or edema Neur: Awake and alert Psych: Normal Mood and Affect Procedures/MDM Medical Decision Making: Differential diagnosis includes but not limited to lymphadenopathy, allergic reaction, thyroid disorder Patient appeared well on physical exam. There is mild neck swelling anteriorly noted. On further questioning patient states that she had cold and flulike symptoms about a week ago. Physical examination consistent with lymphadenopathy. Patient did not want any medications in the ER. She also states that she does not want any medications or prescription because she does not want to take medications. Patient advised to follow up with PCP in 1-2 days. Patient advised to return to ED for new or worsening symptoms. Patient stable on discharge from the ED. Disclaimer: Inadvertent spelling and grammatical errors are likely due to [employer]/dictation software use and do not reflect on the overall quality of patient care. Also, please note that the electronic time recorded on this note does not necessarily reflect the actual time of the patient encounter. Departure Diagnosis: Primary Impression: Neck swelling Condition: Fair Patient Instructions: Understanding Generalized Anxiety Disorder (RUKHSANA), Neck Pain, No Trauma Referrals: [facility] YOU HAVE RECEIVED A MEDICAL SCREENING EXAM AND THE RESULTS INDICATE THAT YOU DO NOT HAVE A CONDITION THAT REQUIRES URGENT TREATMENT IN THE EMERGENCY DEPARTMENT. FURTHER EVALUATION AND TREATMENT OF YOUR CONDITION CAN WAIT UNTIL YOU ARE SEEN IN YOUR DOCTORS OFFICE WITHIN THE NEXT 1-2 DAYS. IT IS YOUR RESPONSIBILITY TO MAKE AN APPOINTMENT FOR FOLOW-UP CARE. IF YOU HAVE A PRIMARY DOCTOR --you should call your primary doctor and schedule an appointment IF YOU DO NOT HAVE A PRIMARY DOCTOR YOU CAN CALL OUR PHYSICIAN REFERRAL HOTLINE AT IF YOU CAN NOT AFFORD TO SEE A PHYSICIAN YOU CAN CHOSE FROM THE FOLLOWING [facility] [address] [facility] [address] [facility] [place] [address] [facility] [address] [facility]. [facility] [address] [facility]. [facility]. [address] Additional Instructions: Call your primary care doctor TOMORROW for an appointment during the next 1-2 days.See the doctor sooner or return here if your condition worsens before your appointment time. BHARATH JARAMILLO DO Jun 09, 2018 08:19
[2018-06-09 09:09] VITALS: BP 146/88; PULSE 84; RESP 16
== END 2018-06-09 09:00 | disposition home or self-care (01) ==
LOC: FTE 02:32
DX: R22.1 Localized swelling, mass and lump, neck (principal)
CPT/HCPCS: 99282